=== PATIENT | male | born 1985 | race Two or more races ===

== ENCOUNTER 2017-12-17 12:51 | Emergency (ER) | payer MEDICAID ==
--- NOTE | 2017-12-17 14:06 | Diagnostic Imaging Report ---
Right foot (3 views) HISTORY: Pain No acute bony abnormalities. No fractures. Joint spaces appear normal. Spur formation is seen off the plantar aspect of the posterior calcaneus. IMPRESSION: 1. No acute abnormalities 2. Calcaneal spur formation In the presence of recent trauma and persistent symptoms, a repeat radiograph in 5-7 days may be helpful for detection of a subtle or occult fracture.
--- NOTE | 2017-12-17 14:15 | ED Physician Chart ---
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 the tip of the tunde hammer slipped and hit the dorsum of the rt big toe with puncture wound 2.0 cm Allergies:: Allergies Allergy/AdvReac Type Severity Reaction Status Date / Time No Known Allergies Allergy Verified 12/17/17 13:16 Vitals:: Vital Signs - 8 hr 12/17/17 13:16 Temp 98.2 F HR 86 RR 16 BP 145/87 O2 Sat % 98 ED Review of Systems - Review of Systems General/Constitutional: No fever Skin: Other (puncture wound dorsum rt big toe) Head: No headache Eyes: No loss of vision ENT: No earache Neck: No neck pain Cardio Vascular: No chest pain Pulmonary: No SOB GI: No vomiting G/U: No dysuria Musculoskeletal: Bone or joint pain Endocrine: No polyuria Psychiatric: No prior psych history, No anxiety Hematopoietic: No bruising Allergic/Immuno: No urticaria Neurological: No syncope ED Septic Shock - . Is Septic Shock (SBP<90, OR Lactate>4 mmol\L) present?: No - <6hrs of presentation: Vital Signs: Vital Signs - 8 hr 12/17/17 13:16 Temp 98.2 F HR 86 RR 16 BP 145/87 O2 Sat % 98 ED Reassessment (Disposition) - Reassessment Reassessment Condition:: Improved - Diagnosis Diagnosis:: puncture wound rt big toe and puncture wound 2.00 cm wound well approximated - Aftercare/Follow up Instructions Medication Prescribed:: keflex 500 mg - Patient Disposition Discharge/Transfer:: Home Condition at Disposition:: Stable
== END 2017-12-17 14:51 | disposition home or self-care (01) ==
LOC: ER 12:51
DX: S91.131A Puncture wound without foreign body of right great toe without damage to nail, initial encounter (principal); W31.89XA Contact with other specified machinery, initial encounter; Y93.89 Activity, other specified; Y92.89 Other specified places as the place of occurrence of the external cause; Y99.0 Civilian activity done for income or pay
CPT/HCPCS: 73630-TC-RT; Z7502